=== PATIENT | female | born 1965 | race Hispanic/Latino ===

== ENCOUNTER 2019-01-19 15:46 | Emergency (ER) | payer OTHER ==
[~2019-01-19] VITALS: Ht 172.7 cm; Wt 95.5 kg
[2019-01-19] MEDS ORDERED: IBUP-1022 PO (15:53)
[2019-01-19] MEDS ORDERED: NS 1,000 ML IV ONE (16:45)
[2019-01-19 16:54] LABS: BASO % 0.3 % (0.0-1.0); EOS # 0.3 10^3/uL (0.0-0.50); EOS % 3.8 % (0.0-3.0); HEMATOCRIT 38.1 % (36.0-47.0); HEMOGLOBIN 11.6 g/dl (12.0-15.5); LYMPH # 1.6 10^3/uL (1.5-4.5); LYMPH % 21.4 % (24.0-44.0); MEAN CORPUSCULAR HGB CONC 30.4 g/dl (32.0-36.5); MEAN CORPUSCULAR VOLUME 75.4 fl (80.0-96.0); MONO # 0.6 10^3/uL (0.0-0.8); MONO % 8.1 % (0.0-5.0); NEUTROPHILS # 4.9 10^3/uL (1.8-7.7); NEUTROPHILS % 66.1 % (36.0-66.0); PLATELET COUNT, AUTOMATED 354 10^3/uL (150-450); RED BLOOD COUNT 5.05 10^6/uL (4.00-5.40); WHITE BLOOD COUNT 7.4 10^3/uL (4.0-10.0)
[2019-01-19 17:08] LABS: INR 1.02; PROTHROMBIN TIME 13.1 SECONDS (11.8-14.0)
[2019-01-19 17:10] LABS: BLOOD UREA NITROGEN 15 MG/DL (7-18); CALCIUM LEVEL 8.9 MG/DL (8.5-10.1); CARBON DIOXIDE LEVEL 33 MEQ/L (21-32); CHLORIDE LEVEL 103 MEQ/L (98-107); CK-MB VALUE MASS < 1.0 NG/ML (<3.6); CPK CREATINE PHOSPHOKINASE 87 U/L (26-192); CREATININE FOR GFR 0.92 MG/DL (0.55-1.30); FREE T4 0.86 NG/DL (0.76-1.46); GLOMERULAR FILTRATION RATE > 60.0 (>51); GLUCOSE, FASTING 74 MG/DL (70-100); MAGNESIUM LEVEL 1.8 MG/DL (1.8-2.4); MB/CK RELATIVE INDEX 1.15 (< OR =4); POTASSIUM SERUM 3.9 MEQ/L (3.5-5.1); SODIUM LEVEL 139 MEQ/L (136-145); TROPONIN I < 0.02 NG/ML (< 0.10); VITAMIN B12 LEVEL 528 PG/ML (247-911)
[2019-01-19 17:47] LABS: AMPHETAMINES LEVEL URINE NEGATIVE (NEGATIVE); BARBITURATES URINE NEGATIVE (NEGATIVE); BENZODIAZEPINES URINE NEGATIVE (NEGATIVE); CANNABINOIDS URINE NEGATIVE (NEGATIVE); COCAINE METABOLITE URINE NEGATIVE (NEGATIVE); METHADONE URINE NEGATIVE (NEGATIVE); OPIATES URINE NEGATIVE (NEGATIVE); PHENCYCLIDINE URINE NEGATIVE (NEGATIVE)
--- NOTE | 2019-01-19 17:59 | REPVR ---
EXAM: US Duplex Bilateral Lower Extremity Veins EXAM DATE/TIME: 01/19/2019 5:35 PM CLINICAL HISTORY: 53 years old, female; Pain; Leg, lower; Bilateral; Additional info: Pain bilateral le TECHNIQUE: Imaging protocol: Real-time duplex ultrasound of the Bilateral Lower Extremities with 2-D ang scale, color Doppler flow and spectral waveform analysis with image documentation. Complete exam focused on the bilateral lower extremity veins. COMPARISON: No relevant prior studies available. FINDINGS: Right deep veins: Unremarkable. The common femoral, femoral and popliteal veins are patent without thrombus. Normal Doppler waveforms. Normal compressibility and/or augmentation response. Right superficial veins: Saphenofemoral junction is patent without thrombus. Left deep veins: Unremarkable. The common femoral, femoral and popliteal veins are patent without thrombus. Normal Doppler waveforms. Normal compressibility and/or augmentation response. Left superficial veins: Saphenofemoral junction is patent without thrombus. Soft tissues: Unremarkable. IMPRESSION: No sonographic evidence of deep vein thrombosis. Electronically signed by: Won Casey On 01/19/2019 17:58:46 PM
[2019-01-19 19:45] VITALS: BP 160/98
--- NOTE | 2019-01-19 20:51 | ECGEPIP ---
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
== END 2019-01-19 19:47 | disposition home or self-care (01) ==
LOC: M ED 15:46
DX: R42 Dizziness and giddiness (principal); I95.1 Orthostatic hypotension; I51.7 Cardiomegaly; Z88.8 Allergy status to other drugs, medicaments and biological substances

== ENCOUNTER → 2019-01-24 | Outpatient (REF) | payer OTHER, MEDICAID ==
[~2019-01-24] MED LIST: IBUP-1022 PO
[2019-01-24 16:12] LABS: CHOLESTEROL RISK RATIO 3.29 (<5)
[2019-01-24 16:19] LABS: TOTAL 25(OH) VITAMIN D 18.7 NG/ML (30.0-100.0)
== END ==
LOC: M LAB REF 15:34
PROVIDERS: ATTEND Nurse Practitioner Adult Health
DX: Z13.9 Encounter for screening, unspecified (principal)

== ENCOUNTER → 2019-01-27 | Outpatient (CLI) | payer OTHER ==
--- NOTE | 2019-01-27 12:24 | REP ---
Right knee five views: There are no comparisons. There is tricompartment osteoarthritis, most advanced in the medial compartment. Subcortical cysts and cortical eburnation and cortical irregularity, particularly in the medial compartment, indicate advanced osteoarthritis. Impression: Advanced tricompartment osteoarthritis. Left knee five views: There is tricompartment osteoarthritis. Subcortical cysts, cortical irregularity and eburnation indicate advanced osteoarthritis, particularly in the medial compartment. Impression: Advanced tricompartment osteoarthritis. Electronically Signed by Sergio Calderon MD 01/27/2019 12:15 P
== END ==
LOC: M RAD 11:37
PROVIDERS: ATTEND Nurse Practitioner Adult Health
DX: M25.561 Pain in right knee (principal); M25.562 Pain in left knee

== ENCOUNTER → 2019-03-22 | Outpatient (CLI) | payer OTHER ==
--- NOTE | 2019-04-02 01:32 | ECWPNPC ---
PATIENT NAME: TORO JOHNSTON : 1965 GENDER: FEMALE VISIT DATE: 03/22/2019 DISCHARGE DATE: 03/22/19 1711 VISIT LOCKED DATE TIME: PHYSICIAN: RICO ELIAS MD RESOURCE: RICO ELIAS MD REASON FOR APPOINTMENT 1. BILAT KNEE PAIN HISTORY OF PRESENT ILLNESS PAIN SCREENING: PATIENT HAS A COMPLAINT OF ACUTE OR CHRONIC PAIN :YES 54 YEAR OLD FEMALE PATIENT WITH A HISTORY OF CHRONIC BILATERAL KNEE PAIN. THE PATIENT DESCRIBES THE PAIN ACHING, BURNING, SORE, AND DAILY WITH A PAIN SCORE OF 7-10/10 DEPENDING ON PHYSICAL ACTIVITY. THE PATIENT STATES HER PAIN BEGAN IN 2004 AFTER WALKING DOWN A FLIGHT OF STAIRS AND PROGRESSIVELY BECAME WORSE IN 2012. THE PATIENT SAYS SHE HAD A KNEE SURGERY IN 2012, BUT THE PAIN STILL PERSISTS. THE PATIENT SAYS THE PAIN IS MAKING IT DIFFICULT TO PERFORM HER DAILY ACTIVITIES SUCH WALKING, CLEANING HER HOUSE, AND GROCERY SHOPPING. PATIENT DENIES UNEXPLAINABLE WEIGHT LOSS, FEVER, CHILLS, NEW CHANGES ON HER URINARY OR BOWEL CONTROL. FALL RISK SCREENING: SCREENING :NO FALLS REPORTED IN THE LAST YEAR CURRENT MEDICATIONS TAKING MELOXICAM 7.5 MG TABLET 1 TABLET ORALLY TWICE DAILY NEEDED TAKING GABAPENTIN 300 MG CAPSULE 1 CAPSULE ORALLY TID TAKING BUPROPION HCL 75 MG TABLET 2 TABLETS ORALLY TWICE A DAY DISCONTINUED VITAMIN D (ERGOCALCIFEROL) 2000 UNIT CAPSULE 1 CAPSULE ORALLY DAILY MEDICATION LIST REVIEWED AND RECONCILED WITH THE PATIENT PAST MEDICAL HISTORY ARTHRITIS BILATERAL KNEES ALLERGIES PREDNISONE: THROAT SWELLING, HARD TO BREATHE - ALLERGY STEROIDS: THROAT SWELLING, HARD TO BREATHE SURGICAL HISTORY KNEE ARTHROSCOPY-RIGHT KNEE SCRAPE 2012 FAMILY HISTORY FATHER: UNKNOWN MOTHER: , DIAGNOSED WITH DIABETES MATERNAL GRAND FATHER: OTHER MALIGNANT NEOPLASM OF UNSPECIFIED SITE SOCIAL HISTORY GENERAL: TOBACCO USE ARE YOU A:NONSMOKER HOUSING: OWNS HOME. EDUCATION LEVEL OF EDUCATION:HIGH SCHOOL LANGUAGE LANGUAGES SPOKEN:TURKISH RECREATIONAL DRUG USE DRUG USE?NO LEARNING BARRIERS / SPECIAL NEEDS BARRIERS TO LEARNING?NO HEARING IMPAIRED?NO VISION IMPAIRED?YES :CORRECTIVE LENSES COGNITIVELY IMPAIRED?NO READINESS TO LEARN?YES LATEX QUESTIONNAIRE LATEX ALLERGY : HAVE YOU EVER DEVELOPED ANY TYPE OF REACTION AFTER HANDLING LATEX PRODUCTS SUCH RUBBER GLOVES, CONDOMS, DIAPHRAGMS, BALLOONS, SOCKS, OR UNDERWEAR?NO LATEX ALLERGY : HAVE YOU EVER DEVELOPED ANY TYPE OF REACTION DURING OR AFTER DENTAL APPOINTMENT, VAGINAL/RECTAL EXAMINATION, SURGICAL PROCEDURE, OR ANY OTHER EXPOSURE?NO LATEX RISK : HAVE YOU EVER HAD ANY DIFFICULTY BREATHING OR HIVES AFTER EATING OR HANDLING ANY FRUITS, OR VEGETABLES; SUCH KIWI, BANANAS, STONE FRUITS, OR CHESTNUTSNO LATEX RISK : DO YOU HAVE A PREVIOUS PERSONAL HISTORY OF MORE THAN NINE SURGERIES, SPINA BIFIDA, OR REPEATED CATHERIZATIONS? NO LATEX RISK : ARE YOU FREQUENTLY EXPOSED TO LATEX PRODUCTS IN YOUR OCCUPATION?NO DATE ASKED : 03/22/2019 CAFFEINE CAFFEINE USE?YES 1-2 CANS SODA EVERY OTHER DAY ADVANCE DIRECTIVE ADVANCE DIRECTIVE DISCUSSED WITH PATIENT:YES PT DOES NOT HAVE HCP AND DECLINES INFORMATION AND ASSISTANCE WITH FORM 03/22/19 PENTECOSTAL [id number] OTHER PT STATES SHE IS SPIRITUAL WITH NO CONFUCIANISM BELIEFS THAT WOULD IMPACT HEALTH CARE. MARITAL STATUS: . ALCOHOL SCREENING DID YOU HAVE A DRINK CONTAINING ALCOHOL IN THE PAST YEAR?YES HOW OFTEN DID YOU HAVE A DRINK CONTAINING ALCOHOL IN THE PAST YEAR?TWO TO FOUR TIMES A MONTH (2 POINTS) HOW MANY DRINKS DID YOU HAVE ON A TYPICAL DAY WHEN YOU WERE DRINKING IN THE PAST YEAR?1 OR 2 (0 POINTS) HOW OFTEN DID YOU HAVE SIX OR MORE DRINKS ON ONE OCCASION IN THE PAST YEAR?NEVER (0 POINTS) POINTS2 INTERPRETATIONNEGATIVE OCCUPATION: UNEMPLOYED. 03/22/19 REVIEWED WITH PT 1540 BV. HOSPITALIZATION/MAJOR DIAGNOSTIC PROCEDURE CYST REMOVED FROM BREAST AT AGE 11 AGE 11 REVIEW OF SYSTEMS REVIEWED BY: PROVIDER: RICO ELIAS MD . CONSTITUTIONAL: ANY CHANGE IN YOUR MEDICAL CONDITION? NO . CHILLS NO . FEVER NO . INFECTION: DO YOU HAVE NEW INFECTIONS? NO . DO YOU HAVE HISTORY OF MRSA? NO . MUSCULOSKELETAL: ANY NEW PATTERNS OF PAIN OR NUMBNESS? YES, INCREASING INTENSITY OF PAIN . SYTEMIC LUPUS NO . GASTROENTEROLOGY: ANY NEW CHANGE IN BOWEL CONTROL? NO . BARRETTS ESOPHAGUS NO . CIRRHOSIS NO . HEPATITIS NO . LIVER FAILURE NO . ACID REFLUX NO . UNEXPLAINED WEIGHT LOSS NO . GENITOURINARY: ANY NEW CHANGE IN BLADDER CONTROL? NO . IS THERE A CHANCE YOU COULD BE ? NO . HEMATOLOGY/LYMPH: DO YOU TAKE ANY BLOOD THINNERS? (FOR EXAMPLE- COUMADIN, PLAVIX, AGGRENOX, PLATEL, PRADAXA, OR XARELTO) NO . WHEN WAS YOUR LAST DOSE? DATE: TIME: . LOW PLATELET COUNT NO . SICKLE CELL DISEASE NO . VON WILLIEBRANDS NO . FACTOR V LEIDEN NO . THALLASEMIA NO . ANEMIA NO . EASY BRUISING NO . NEUROLOGY: HAVE YOU FALLEN IN THE PAST 12 MONTHS? NO . ANY NEW EXTREMITY NUMBNESS OR WEAKNESS? NO . HEAD INJURY NO . DEMENTIA NO . CEREBRAL PALSY NO . MULTIPLE SCLEROSIS NO . DIZZINESS NO . HEADACHE NO . STROKES NO . VERTIGO NO . CARDIOLOGY: DO YOU HAVE A PACEMAKER OR DEFIBRILLATOR? NO . ANGINA NO . HEART ATTACK NO . HEART SURGERY NO . CONGESTIVE HEART FAILURE/FLUID OVERLOAD NO . CHEST PAIN NO . HIGH BLOOD PRESSURE NO . IRREGULAR HEART BEAT NO . RESPIRATORY: HAVE YOU BEEN SICK IN THE PAST WEEK? NO . FEVER NO . FLU LIKE SYMPTOMS? NO . CPAP NO . BYPAP NO . ASTHMA NO . EMPHYSEMA NO . CHRONIC LUNG DISEASES NO . SHORTNESS OF BREATH ON EXERTION NO . COUGH NO . SNORING NO . INTEGUMENTARY: DO YOU HAVE ANY RASHES OR OPEN SORES? NO . ALLERGIC/IMMUNO: ARE YOU ALLERGIC TO IV DYE? NO . ANY NEW ALLERGIES? NO . PSYCHIATRIC: DO YOU HAVE THOUGHTS OF HURTING YOURSELF OR SOMEONE ELSE? NO . ARE YOU ABUSED, NEGLECTED, OR IN AN UNSAFE ENVIRONMENT? NO . ENDOCRINOLOGY: ARE YOU DIABETIC? NO . THYROID DISORDER NO . OTHER: DO YOU NEED ANY PRESCRIPTIONS? NO . IF YES, PLEASE LIST: ____ . ANY NEW PROBLEMS WITH YOUR MEDICATIONS? NO . WHEN DID YOU LAST EAT? ____ . WHEN DID YOU LAST DRINK? ____ . WHAT DID YOU LAST DRINK? ____ . NAME OF PERSON DRIVING YOU HOME? ____ . DO YOU HAVE ANY OTHER QUESTIONS OR CONCERNS PT HAS HAD SEVERE MUSCLE CRAMPS IN BILATERAL LEGS AT NIGHT SINCE SHE WAS A CHILD. STATES SHE HAS TAKEN FLEXERIL IN THE PAST WITH NO RELIEF . VITAL SIGNS WT 262.8 LBS, HT 57 IN, BMI 56.86 INDEX, BP 188/91 MM HG, HR 84 /MIN, RR 18 /MIN, TEMP 97.6 F, OXYGEN SAT % 100%, NA INITIALS AW 1532, REVIEWED BY: BV. EXAMINATION GENERAL EXAMINATION: PATIENT IS ALERT O X 3 AND COOPERATIVE. LUNGS CLEAR, TO AUSCULTATION. HEART: NO MURMURS OR GALLOPS; FACIAL CRANIAL NERVES ARE GROSSLY NORMAL. GOOD SYMMETRY OF FACIAL MUSCLE MOVEMENT. NORMAL VISUAL LIZ. ANTALGIC WALK. PATIENT IS LIMPING FROM THE RIGHT LEG. TENDERNESS IN THE MEDIAL ASPECT OF BOTH KNEES, ESPECIALLY THE RIGHT KNEE. SWELLING IN BOTH KNEES. NO CREPITUS OF THE KNEES, BUT PAIN IS PRESENT WITH MOVEMENT. X-RAY OF KNEES DONE ON 02/08/2019 AND 01/27/2019 SHOWS SEVERE ARTHRITIS. ASSESSMENTS ARTHRITIS OF KNEE, LEFT - M17.12 (PRIMARY) ARTHRITIS OF KNEE, RIGHT - M17.11 PAIN IN RIGHT KNEE - M25.561 PAIN IN LEFT KNEE - M25.562 OTHER CHRONIC PAIN - G89.29 TREATMENT ARTHRITIS OF KNEE, LEFT CLINICAL NOTES: WE DISCUSSED SEVERAL ISSUES WITH MS. JOHNSTON'S PAIN MANAGEMENT CASE. DUE TO THE KNEE PAIN, I WOULD LIKE TO DO KNEE INJECTIONS TO HELP WITH HER PAIN, HOWEVER THE PATIENT IS ALLERGIC TO STEROIDS. THEREFORE, I WOULD LIKE TO TRY HYLAN OR HYALURONAN AN ALTERNATIVE TO STEROIDS. BEFORE I PERFORM ANY INJECTIONS, I WOULD LIKE TO DISCUSS THE PATIENT'S CASE AND RECEIVE AN OPINION FROM THE PATIENT'S ORTHOPEDIC SURGEON, DR. JACKIE VALLEJO. I DISCUSSED WITH THE PATIENT THAT SHE MAY BE A CANDIDATE FOR COOL RADIOFREQUENCY IN THE FUTURE. I WILL ALSO DISCUSS THIS PROCEDURE WITH DR. VALLEJO TO GET HIS OPINION. THE MAIN CONCERN IS THE PAIN AND SWELLING NEAR THE MEDIAL, PERIPHERAL ASPECT OF BOTH KNEES. I AM REFERRING THE PATIENT TO [facility] TO CONSIDER MEDICATION MANAGEMENT FOR HER CHRONIC BILATERAL KNEE PAIN. I AM STARTING THE PATIENT ON CELECOXIB 200 MG 1 CAPSULE DAILY WITH FOOD TO HELP WITH HER KNEE PAIN. THE PATIENT IS USING MELOXICAM THAT IS NOT WORKING FOR HER AND HAS TRIED IBUPROFEN, DICLOFENAC, PATCHES, AND TOPICAL PRODUCTS IN THE PAST THAT DID NOT OFFER ANY PAIN RELIEF FOR HER. THE PATIENT WILL FOLLOW UP WITH THE NURSE PRACTITIONER IN 6 WEEKS. INSTRUCTIONS WERE GIVEN, QUESTIONS WERE ANSWERED, PATIENT REPORTS UNDERSTANDING AND AGREES WITH THE PLAN. I, CRISTELA SALGADO, DOCUMENTED THE ABOVE INFORMATION ACTING A SCRIBE FOR DR. ELIAS. I HAVE REVIEWED THE ABOVE DOCUMENT, WRITTEN BY CRISTELA OSPINA AND I VERIFY THAT IT IS ACCURATE. DEAR BOO NEGRETE NP: THANK YOU FOR YOUR KIND REFERRAL OF TORO JOHNSTON. IF YOU WANT TO DISCUSS HER CASE WITH ME PLEASE CALL ME AT THE PAIN CENTER AT [phone]. SINCERELY, RICO ELIAS MD PAIN MEDICINE . 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 IT IS NOT A COPY OF THE [employer] PROGRESS NOTE. MTDD
== END ==
LOC: M PAIN 15:30
PROVIDERS: ATTEND Anesthesiology
DX: M17.0 Bilateral primary osteoarthritis of knee (principal); M25.561 Pain in right knee; M25.562 Pain in left knee; G89.29 Other chronic pain; Z88.8 Allergy status to other drugs, medicaments and biological substances; E66.01 Morbid (severe) obesity due to excess calories; Z68.43 Body mass index [BMI] 50.0-59.9, adult; Z79.899 Other long term (current) drug therapy

== ENCOUNTER → 2019-05-17 | Outpatient (CLI) | payer OTHER ==
--- NOTE | 2019-05-17 16:41 | REP ---
Left forearm: Two views. History: Pain in the left arm. Findings: AP and lateral views left forearm demonstrate normal bones, joints, and soft tissues. No fracture or subluxation is seen. Impression: Negative left forearm radiographs. Electronically Signed by Mani Pichardo MD 05/17/2019 04:33 P
--- NOTE | 2019-05-17 20:02 | REP ---
Left hand series: Four views. History: Pain. Findings: Four views of the left hand demonstrate overall normal mineralization. There is minimal spurring at the IP joint of the thumb and the DIP joints of the long, ring, and small fingers. There is mild spurring at the first carpometacarpal articulation. No acute erosive changes seen. Impression: Mild osteoarthritic changes. Electronically Signed by Mani Pichardo MD 05/18/2019 09:47 A
== END ==
LOC: M RAD 15:36
PROVIDERS: ATTEND Nurse Practitioner Adult Health
DX: M25.532 Pain in left wrist (principal)

== ENCOUNTER → 2019-05-23 | Outpatient (CLI) | payer OTHER ==
--- NOTE | 2019-05-23 12:39 | REPMRS ---
Patient History The patient states she has not had a clinical breast exam in over a year. Family history of pancreatic cancer in maternal grandmother. Priors are no longer available Digital Mammo Screening Bilat: May 23, 2019 - Exam #: [id number] Bilateral CC and MLO view(s) were taken. Technologist: Christin Do, Technologist No prior studies available for comparison. FINDINGS: There are scattered fibroglandular densities. There is no evidence of dominant mass, architectural distortion, or grouped microcalcification typical of malignancy. 3-D tomosynthesis shows no additional findings. Assessment: BI-RADS/ACR category 1 mammogram. Negative Mammogram. Recommendation Routine screening mammogram of both breasts in 1 year (for women over age 40). This patient's Lifetime Breast Cancer RIsk is estimated at 12.0 %. This mammogram was interpreted with the aid of an FDA-approved computer-aided dectection system. Electronically Signed By: Alexis Pichardo MD 05/23/19 8225
== END ==
LOC: M RAD 11:01
PROVIDERS: ATTEND Nurse Practitioner Family
DX: Z12.31 Encounter for screening mammogram for malignant neoplasm of breast (principal)

== ENCOUNTER 2019-08-02 12:52 | Emergency (ER) | payer OTHER ==
[~2019-08-02] VITALS: Ht 170.2 cm; Wt 120.9 kg
[2019-08-02] MEDS ORDERED: CYCLOBENZAPRINE 10 MG TAB PO ONE (15:15)
[2019-08-02] MEDS ORDERED: LIDOCAINE 5% (LIDODERM) PATCH TD ONE (15:15)
[2019-08-02] MEDS ORDERED: CYCL10TA PO (15:57)
[2019-08-02] MEDS ORDERED: LIDO5DIS41 TOP (15:57)
[2019-08-02 16:00] VITALS: BP 148/72
[2019-08-02] MEDS ORDERED: **NOTE PATIENT COMMENT** MISC XX SCH (21:00)
== END 2019-08-02 16:16 | disposition home or self-care (01) ==
LOC: M ED 12:52
DX: M54.5 Low back pain (principal); G89.29 Other chronic pain; M25.561 Pain in right knee; M19.90 Unspecified osteoarthritis, unspecified site; Z79.899 Other long term (current) drug therapy; Z79.891 Long term (current) use of opiate analgesic; Z88.8 Allergy status to other drugs, medicaments and biological substances

== ENCOUNTER → 2020-03-16 | Outpatient (CLI) | payer OTHER ==
[~2020-03-16] MED LIST changes: +CYCL-707 PO; +LIDO5DIS41 TOP
--- NOTE | 2020-03-30 08:14 | REP ---
DIGITAL DIAGNOSTIC RIGHT BREAST MAMMOGRAPHY WITH CAD, 3D-TOMOGRAPHY, AND TARGETED RIGHT BREAST ULTRASOUND HISTORY: Palpable lump right breast x2-3 weeks. Tenderness. COMPARISON: Mammography from 05/23/2019. MAMMOGRAPHIC FINDINGS: A skin marker is affixed to the skin at the site of the palpable lump. This projects inferiorly and slightly laterally at approximately the 7 o'clock position. Breast parenchymal is predominantly fat replaced. There are scattered fibroglandular elements and the Volpara breast parenchymal density pattern is B. There is a normal benign inframammary lymph node laterally. At the site of the palpable lump, there is no soft tissue density, architectural distortion, or microcalcification. No worrisome skin change is seen. No mammographic abnormality. SONOGRAPHIC FINDINGS: The palpable painful lump is scanned in the 6-7 o'clock position. Slightly heterogeneous background echotexture is seen. No cyst is seen. No mass is observed. No acoustic shadowing is seen. IMPRESSION: BI-RADS Category 2 benign findings. Clinical follow-up is advised. Annual screening mammography can resume. This mammogram was read with the aid of an FDA approved computer-aided detection device. The patient states that her last clinical breast exam was in 02/2020. Patients Tyrer-Cuzick lifetime breast cancer risk score is 11.7%. Patient letter: Annette PAZ
== END ==
LOC: M WHC 10:12
PROVIDERS: ATTEND Nurse Practitioner Family
DX: N63.10 Unspecified lump in the right breast, unspecified quadrant (principal)
CPT/HCPCS: 76642; 77065; G0279

== ENCOUNTER → 2020-05-15 | Outpatient (REF) | payer OTHER, MEDICAID ==
[2020-05-15 13:53] LABS: RHEUMATOID FACTOR QUANT < 10.0 IU/ML (<15.0); URIC ACID 4.4 MG/DL (2.6-6.0)
[2020-05-18 17:08] LABS: ANTI DS-DNA AB Negative (Negative); ANTINUCLEAR ANTIBODIES DIRECT Negative (Negative)
== END ==
LOC: M LAB REF 12:43
PROVIDERS: ATTEND Nurse Practitioner Family
DX: M79.601 Pain in right arm (principal); M25.511 Pain in right shoulder; M25.561 Pain in right knee; M79.602 Pain in left arm; M17.0 Bilateral primary osteoarthritis of knee; E66.09 Other obesity due to excess calories

== ENCOUNTER 2020-06-13 16:42 | Emergency (ER) | payer OTHER, MEDICAID ==
[~2020-06-13] VITALS: Ht 170.2 cm; Wt 113.6 kg
[2020-06-13] MEDS ORDERED: LIDOCAINE 4% CREAM 5GM (LMX4) TOP ONE (17:45)
--- NOTE | 2020-06-13 18:44 | REPVR ---
PROCEDURE INFORMATION: Exam: US Duplex Lower Extremity Veins, Bilateral Exam date and time: 06/13/2020 6:29 PM Age: 55 years old Clinical indication: Pain; Other: Knees; Additional info: Pain behind knees, swelling TECHNIQUE: Imaging protocol: Real-time duplex ultrasound of the extremities with 2-D ang scale, color Doppler flow and spectral waveform analysis with image documentation. Complete exam focused on the bilateral lower extremity veins. COMPARISON: US Duplex, Ext LOWER veins, bilat 01/19/2019 5:27 PM FINDINGS: Right deep veins: Unremarkable. The common femoral, femoral, proximal profunda femoral and popliteal veins are patent without thrombus. Normal Doppler waveforms. Normal compressibility and/or augmentation response. Right superficial veins: Saphenofemoral junction is patent without thrombus. Left deep veins: Unremarkable. The common femoral, femoral, proximal profunda femoral and popliteal veins are patent without thrombus. Normal Doppler waveforms. Normal compressibility and/or augmentation response. Left superficial veins: Saphenofemoral junction is patent without thrombus. Soft tissues: 2.6 cm x 1.4 cm complex cyst left popliteal fossa consistent with a complex Steve's cyst. IMPRESSION: No evidence of deep vein thrombosis. 2.6 cm complex Steve's cyst on the left. Electronically signed by: David Rubalcava On 06/13/2020 18:44:20 PM
[2020-06-13] MEDS ORDERED: ANEC4CRE3 TOP (19:34)
[2020-06-13] MEDS ORDERED: VOLT1GEL15 TOP (19:34)
[2020-06-13] MEDS ORDERED: FUTU-110 XX (19:35)
[2020-06-13 19:59] VITALS: BP 154/64
== END 2020-06-13 20:00 | disposition home or self-care (01) ==
LOC: M ED 16:42
DX: M71.22 Synovial cyst of popliteal space [Baker], left knee (principal); M25.561 Pain in right knee; I10 Essential (primary) hypertension; Z88.8 Allergy status to other drugs, medicaments and biological substances

== ENCOUNTER 2021-12-17 17:24 | Emergency (ER) | payer OTHER ==
[~2021-12-17] VITALS: Ht 170.2 cm; Wt 105.7 kg
[~2021-12-17 17:24] MED LIST changes: +ANEC4CRE3 TOP; +FUTU-110 XX; +VOLT1GEL15 TOP
[2021-12-17] MEDS ORDERED: LORA-674 (17:39)
[2021-12-17] MEDS ORDERED: FURO20TA2 (17:39)
[2021-12-17] MEDS ORDERED: OXYC-1 (17:39)
[2021-12-17] MEDS ORDERED: FERR325T3 (17:39)
[2021-12-17 22:09] VITALS: BP 192/92
== END 2021-12-17 22:18 | disposition home or self-care (01) ==
LOC: M ED 17:24
DX: D25.9 Leiomyoma of uterus, unspecified (principal); I10 Essential (primary) hypertension; Z88.8 Allergy status to other drugs, medicaments and biological substances; Z79.899 Other long term (current) drug therapy

== ENCOUNTER → 2022-02-20 | Outpatient (CLI) | payer OTHER ==
[~2022-02-20] MED LIST changes: +FERR325T3; +FURO20TA2; +LORA-674; +OXYC-1
== END ==
LOC: M WHC 15:21
PROVIDERS: ATTEND Nurse Practitioner Family
DX: Z12.31 Encounter for screening mammogram for malignant neoplasm of breast (principal)

== ENCOUNTER → 2022-07-14 | Outpatient (REF) | payer OTHER ==
[2022-07-14 17:06] LABS: BASO % 0.4 % (0.0-1.0); EOS # 0.4 10^3/uL (0.0-0.5); EOS % 4.3 % (0.0-3.0); HEMATOCRIT 37.8 % (36.0-47.0); HEMOGLOBIN 11.3 g/dl (12.0-15.5); LYMPH # 1.6 10^3/uL (1.5-5.0); LYMPH % 18.3 % (24.0-44.0); MEAN CORPUSCULAR HEMOGLOBIN 22.9 pg (27.0-33.0); MEAN CORPUSCULAR HGB CONC 29.9 g/dl (32.0-36.5); MEAN CORPUSCULAR VOLUME 76.7 fl (80.0-96.0); MONO # 0.8 10^3/uL (0.0-0.8); MONO % 8.9 % (2.0-8.0); NEUTROPHILS # 6.1 10^3/uL (1.5-8.5); NEUTROPHILS % 67.9 % (36.0-66.0); PLATELET COUNT, AUTOMATED 314 10^3/uL (150-450); RED BLOOD COUNT 4.93 10^6/uL (4.00-5.40); WHITE BLOOD COUNT 8.9 10^3/uL (4.0-10.0)
[2022-07-14 17:38] LABS: FERRITIN 81.5 NG/ML (7.3-270.7); THYROID STIMULATING HORMONE 2.386 uIU/ML (0.55-4.78)
[2022-07-14 17:39] LABS: ALBUMIN 3.7 G/DL (3.2-5.2); BILIRUBIN,TOTAL 0.4 MG/DL (0.3-1.2); CALCIUM LEVEL 9.1 MG/DL (8.5-10.1); CHOLESTEROL RISK RATIO 3.28 (<5); CREATININE FOR GFR 1.04 MG/DL (0.55-1.30); GLOMERULAR FILTRATION RATE 58.4 (>51); HDL CHOLESTEROL 63.1 MG/DL (>40); LDL CHOLESTEROL 124.5 MG/DL (<100); PERCENT SATURATION 17.1 % (13.2-45.0); POTASSIUM SERUM 4.4 MMOL/L (3.5-5.1); TOTAL PROTEIN 7.2 G/DL (5.7-8.2)
[2022-07-14 17:42] LABS: HEMOGLOBIN A1c 5.4 % (4.0-6.0)
== END ==
LOC: M LAB REF 16:29
PROVIDERS: ATTEND Nurse Practitioner Family
DX: D64.9 Anemia, unspecified (principal); E66.3 Overweight

== ENCOUNTER → 2022-11-10 | Outpatient (REF) | payer OTHER ==
[2022-11-10 16:57] LABS: BASO % 0.3 % (0.0-1.0); EOS # 0.7 10^3/uL (0.0-0.5); EOS % 9.8 % (0.0-3.0); HEMATOCRIT 34.7 % (36.0-47.0); HEMOGLOBIN 10.7 g/dl (12.0-15.5); LYMPH # 2.1 10^3/uL (1.5-5.0); LYMPH % 30.4 % (24.0-44.0); MEAN CORPUSCULAR HEMOGLOBIN 23.4 pg (27.0-33.0); MEAN CORPUSCULAR HGB CONC 30.8 g/dl (32.0-36.5); MEAN CORPUSCULAR VOLUME 75.8 fl (80.0-96.0); MONO # 0.6 10^3/uL (0.0-0.8); MONO % 8.4 % (2.0-8.0); NEUTROPHILS # 3.4 10^3/uL (1.5-8.5); NEUTROPHILS % 50.8 % (36.0-66.0); PLATELET COUNT, AUTOMATED 308 10^3/uL (150-450); RED BLOOD COUNT 4.58 10^6/uL (4.00-5.40); WHITE BLOOD COUNT 6.8 10^3/uL (4.0-10.0)
[2022-11-10 17:22] LABS: ALBUMIN 3.3 G/DL (3.2-5.2); ALKALINE PHOSPHATASE 96 U/L (46-116); ALT/SGPT 16 U/L (7.0-40); AST/SGOT 17 U/L (<34); BILIRUBIN,TOTAL 0.2 MG/DL (0.3-1.2); BLOOD UREA NITROGEN 20 MG/DL (9-23); CALCIUM LEVEL 8.4 MG/DL (8.5-10.1); CARBON DIOXIDE LEVEL 28 MMOL/L (20-31); CHLORIDE LEVEL 108 MMOL/L (98-107); CREATININE FOR GFR 0.95 MG/DL (0.55-1.30); GLOMERULAR FILTRATION RATE > 60.0 (>51); GLUCOSE, FASTING 104 MG/DL (60-100); RHEUMATOID FACTOR QUANT 8.5 IU/ML (<14); SODIUM LEVEL 140 MMOL/L (136-145); TOTAL PROTEIN 6.5 G/DL (5.7-8.2)
[2022-11-10 17:25] LABS: ERYTHROCYTE SEDIMENTATION RATE 37 mm/hr (0-30)
== END ==
LOC: M LAB REF 16:28
PROVIDERS: ATTEND Nurse Practitioner Family
DX: M25.50 Pain in unspecified joint (principal)

== ENCOUNTER → 2023-03-06 | Outpatient (CLI) | payer OTHER ==
[~2023-03-06] MED LIST changes: +LORA-1041; -LORA-674
[2023-03-06 19:07] LABS: BASO % 0.3 % (0.0-1.0); EOS # 0.2 10^3/uL (0.0-0.5); EOS % 2.2 % (0.0-3.0); HEMATOCRIT 34.3 % (36.0-47.0); HEMOGLOBIN 10.4 g/dl (12.0-15.5); LYMPH # 2.1 10^3/uL (1.5-5.0); LYMPH % 30.9 % (24.0-44.0); MEAN CORPUSCULAR HGB CONC 30.3 g/dl (32.0-36.5); MEAN CORPUSCULAR VOLUME 75.9 fl (80.0-96.0); MONO # 0.6 10^3/uL (0.0-0.8); MONO % 8.3 % (2.0-8.0); NEUTROPHILS # 3.9 10^3/uL (1.5-8.5); NEUTROPHILS % 57.9 % (36.0-66.0); PLATELET COUNT, AUTOMATED 339 10^3/uL (150-450); RED BLOOD COUNT 4.52 10^6/uL (4.00-5.40); WHITE BLOOD COUNT 6.8 10^3/uL (4.0-10.0)
[2023-03-06 19:25] LABS: ERYTHROCYTE SEDIMENTATION RATE 34 mm/hr (0-30)
[2023-03-06 19:40] LABS: URIC ACID 5.1 MG/DL (3.1-7.8)
[2023-03-06 19:41] LABS: C REACTIVE PROTEIN QUANTITATIV 0.7 MG/DL (<1.0)
[2023-03-09 12:07] LABS: ANTINUCLEAR ANTIBODIES DIRECT Negative (Negative)
== END ==
LOC: M WUC 12:15
PROVIDERS: ATTEND Orthopaedic Surgery
DX: M25.561 Pain in right knee (principal)

== ENCOUNTER → 2023-04-14 | Outpatient (CLI) | payer OTHER | LOC: M RAD 12:30 | PROVIDERS: ATTEND Nurse Practitioner Family | DX: M54.2 Cervicalgia (principal) ==

== ENCOUNTER → 2023-06-03 | Outpatient (REF) | payer OTHER, MEDICAID ==
[2023-06-03 17:06] LABS: BASO % 0.4 % (0.0-1.0); EOS # 0.2 10^3/uL (0.0-0.5); EOS % 3.1 % (0.0-3.0); HEMATOCRIT 34.9 % (36.0-47.0); HEMOGLOBIN 10.6 g/dl (12.0-15.5); LYMPH # 2.5 10^3/uL (1.5-5.0); LYMPH % 33.6 % (24.0-44.0); MEAN CORPUSCULAR HEMOGLOBIN 23.2 pg (27.0-33.0); MEAN CORPUSCULAR HGB CONC 30.4 g/dl (32.0-36.5); MEAN CORPUSCULAR VOLUME 76.5 fl (80.0-96.0); MONO # 0.6 10^3/uL (0.0-0.8); MONO % 8.4 % (2.0-8.0); NEUTROPHILS # 4.1 10^3/uL (1.5-8.5); NEUTROPHILS % 54.1 % (36.0-66.0); PLATELET COUNT, AUTOMATED 324 10^3/uL (150-450); RED BLOOD COUNT 4.56 10^6/uL (4.00-5.40); WHITE BLOOD COUNT 7.5 10^3/uL (4.0-10.0)
[2023-06-03 17:37] LABS: ALBUMIN 3.4 G/DL (3.2-5.2); BILIRUBIN,TOTAL 0.2 MG/DL (0.3-1.2); CALCIUM LEVEL 9.1 MG/DL (8.5-10.1); CREATININE FOR GFR 1.04 MG/DL (0.55-1.30); GLOMERULAR FILTRATION RATE 58.1 (>51); MAGNESIUM LEVEL 1.4 MG/DL (1.8-2.4); POTASSIUM SERUM 3.7 MMOL/L (3.5-5.1); TOTAL PROTEIN 6.7 G/DL (5.7-8.2)
== END ==
LOC: M LAB REF 16:19
PROVIDERS: ATTEND Nurse Practitioner Family
DX: Z01.818 Encounter for other preprocedural examination (principal)

== ENCOUNTER 2023-06-20 17:45 | Observation (INO) | payer MEDICAID, OTHER ==
[~2023-06-20] VITALS: Ht 170.2 cm; Wt 105.4 kg
[~2023-06-20 17:45] MED LIST changes: -LORA-1041; +LORA-1041 PO
[2023-06-20] MEDS ORDERED: ONDANSETRON 4MG 2ML VIAL IV ONE (18:10)
[2023-06-20] MEDS: NS 1,000 ML IV SCH (18:52)
[2023-06-20 19:02] LABS: BASO % 0.1 % (0.0-1.0); EOS % 0.1 % (0.0-3.0); HEMATOCRIT 32.6 % (36.0-47.0); HEMOGLOBIN 10.2 g/dl (12.0-15.5); LYMPH # 0.8 10^3/uL (1.5-5.0); LYMPH % 7.9 % (24.0-44.0); MEAN CORPUSCULAR HEMOGLOBIN 23.4 pg (27.0-33.0); MEAN CORPUSCULAR HGB CONC 31.3 g/dl (32.0-36.5); MEAN CORPUSCULAR VOLUME 74.9 fl (80.0-96.0); MONO # 0.3 10^3/uL (0.0-0.8); MONO % 2.6 % (2.0-8.0); NEUTROPHILS # 8.4 10^3/uL (1.5-8.5); NEUTROPHILS % 88.7 % (36.0-66.0); PLATELET COUNT, AUTOMATED 337 10^3/uL (150-450); RED BLOOD COUNT 4.35 10^6/uL (4.00-5.40); WHITE BLOOD COUNT 9.5 10^3/uL (4.0-10.0)
[2023-06-20] MEDS ORDERED: levETIRAcetam INJection 1,500 MG in D5W 100 ML IV ONE (19:10)
[2023-06-20 19:13] LABS: INR 1.16; PARTIAL THROMBOPLASTIN TIME 23.6 SECONDS (24.8-34.2); PROTHROMBIN TIME 14.5 SECONDS (12.5-14.5)
[2023-06-20 19:18] LABS: ETHYL ALCOHOL (ETHANOL) 0.007 % (0.000-0.010); LIPASE 20 U/L (12-53)
[2023-06-20 19:19] LABS: CK-MB VALUE MASS < 1.0 NG/ML (<3.6)
[2023-06-20 19:20] LABS: ALBUMIN 3.9 G/DL (3.2-5.2); ALKALINE PHOSPHATASE 98 U/L (46-116); ALT/SGPT 15 U/L (7.0-40); AMYLASE 34 U/L (30-118); AST/SGOT 16 U/L (<34); BILIRUBIN,DIRECT 0.2 MG/DL (<0.4); BILIRUBIN,TOTAL 0.6 MG/DL (0.3-1.2); BLOOD UREA NITROGEN 19 MG/DL (9-23); CARBON DIOXIDE LEVEL 26 MMOL/L (20-31); CHLORIDE LEVEL 103 MMOL/L (98-107); CREATININE FOR GFR 0.89 MG/DL (0.55-1.30); GLOMERULAR FILTRATION RATE > 60.0 (>51); GLUCOSE, FASTING 147 MG/DL (60-100); POTASSIUM SERUM 4.5 MMOL/L (3.5-5.1); SODIUM LEVEL 137 MMOL/L (136-145); TOTAL PROTEIN 7.4 G/DL (5.7-8.2)
[2023-06-20 19:21] LABS: CPK CREATINE PHOSPHOKINASE 135 U/L (34-145); MB/CK RELATIVE INDEX 0.74 (< OR =4)
[2023-06-20 19:22] LABS: FREE T4 1.14 NG/DL (0.89-1.76); THYROID STIMULATING HORMONE 1.785 uIU/ML (0.55-4.78)
[2023-06-20 19:32] LABS: RSV AMPLIFICATION NEGATIVE (NEGATIVE)
[2023-06-20 20:58] LABS: CK-MB VALUE MASS < 1.0 NG/ML (<3.6)
[2023-06-20 21:00] LABS: CPK CREATINE PHOSPHOKINASE 132 U/L (34-145); MB/CK RELATIVE INDEX 0.75 (< OR =4)
[2023-06-20 23:27] LABS: AMPHETAMINES LEVEL URINE NEGATIVE (NEGATIVE); BARBITURATES URINE NEGATIVE (NEGATIVE); BENZODIAZEPINES URINE NEGATIVE (NEGATIVE); COCAINE METABOLITE URINE NEGATIVE (NEGATIVE); METHADONE URINE NEGATIVE (NEGATIVE)
[2023-06-20 23:28] LABS: CANNABINOIDS URINE NEGATIVE (NEGATIVE); OPIATES URINE NEGATIVE (NEGATIVE); PHENCYCLIDINE URINE NEGATIVE (NEGATIVE)
[2023-06-21] MEDS ORDERED: LISI20TA33 PO (01:35)
[2023-06-21] MEDS ORDERED: BUPR300T92 PO (01:36)
[2023-06-21] MEDS ORDERED: MECL-86 PO (01:36)
[2023-06-21] MEDS ORDERED: GABA800T4 PO (01:36)
[2023-06-21] MEDS ORDERED: ACE65ERTAB PO (01:36)
[2023-06-21] MEDS ORDERED: MAGN500T2 PO (01:36)
[2023-06-21] MEDS ORDERED: BUPR150T12 PO (01:38)
[2023-06-21] MEDS ORDERED: OXYC-1 PO (01:38)
[2023-06-21] MEDS ORDERED: HOME MED LIST COMPLETE! XX SCH (01:40)
[2023-06-21] MEDS ORDERED: ACETAMINOPHEN TAB 650MG DOSE (2X325MG) PO ONE (01:50)
[2023-06-21] MEDS: NS 1,000 ML IV SCH (02:12)
[2023-06-21] MEDS ORDERED: MAALOX 30 ML SUSP *UDC PO PRN (02:40)
[2023-06-21] MEDS ORDERED: MOM 30ML SUSPENSION UDC PO PRN (02:40)
[2023-06-21] MEDS: DOCUSATE SODIUM 100MG CAPSULE PO SCH ×2 (09:03→20:58)
[2023-06-21] MEDS: levETIRAcetam 250MG TABLET (KEPPRA) PO SCH ×2 (09:03→20:59)
[2023-06-21] MEDS: ENOXAPARIN 40MG/0.4ML SYRINGE (J1650 PER 10MG) SC SCH (09:04)
[2023-06-21] MEDS: oxyCODONE 5MG TAB PO SCH ×2 (11:18→20:59)
[2023-06-21] MEDS: MECLIZINE 25 MG TABLET PO SCH ×3 (11:19→20:58)
[2023-06-21] MEDS: LORATADINE 10 MG TAB PO SCH (11:19)
[2023-06-21] MEDS: GABAPENTIN 400MG CAP PO SCH ×3 (11:19→20:59)
[2023-06-21 14:40] VITALS: BP 142/67; TEMP 97; O2SAT 100
[2023-06-21] MEDS: ACETAMINOPHEN TAB 650MG DOSE (2X325MG) PO PRN (20:58)
[2023-06-21 21:13] VITALS: BP 140/77; TEMP 98.1; O2SAT 99
[2023-06-22 06:00] VITALS: BP 143/76; TEMP 97.7; O2SAT 97
[2023-06-22 06:51] LABS: HEMATOCRIT 30.3 % (36.0-47.0); HEMOGLOBIN 9.3 g/dl (12.0-15.5); MEAN CORPUSCULAR HEMOGLOBIN 23.7 pg (27.0-33.0); MEAN CORPUSCULAR HGB CONC 30.7 g/dl (32.0-36.5); MEAN CORPUSCULAR VOLUME 77.1 fl (80.0-96.0); PLATELET COUNT, AUTOMATED 310 10^3/uL (150-450); RED BLOOD COUNT 3.93 10^6/uL (4.00-5.40); WHITE BLOOD COUNT 7.4 10^3/uL (4.0-10.0)
[2023-06-22 07:09] LABS: BLOOD UREA NITROGEN 25 MG/DL (9-23); CARBON DIOXIDE LEVEL 28 MMOL/L (20-31); CHLORIDE LEVEL 107 MMOL/L (98-107); GLOMERULAR FILTRATION RATE > 60.0 (>51); GLUCOSE, FASTING 97 MG/DL (60-100); POTASSIUM SERUM 4.5 MMOL/L (3.5-5.1); SODIUM LEVEL 140 MMOL/L (136-145)
[2023-06-22 08:09] LABS: IRON (FE) 38 UG/DL (50-170); PERCENT SATURATION 15.6 % (13.2-45.0); TOTAL IRON BINDING CAPACITY 243 UG/DL (250-425)
[2023-06-22] MEDS: MECLIZINE 25 MG TABLET PO SCH ×3 (08:09→20:19)
[2023-06-22] MEDS: GABAPENTIN 400MG CAP PO SCH ×3 (08:09→20:19)
[2023-06-22] MEDS: DOCUSATE SODIUM 100MG CAPSULE PO SCH ×2 (08:09→20:19)
[2023-06-22] MEDS: ENOXAPARIN 40MG/0.4ML SYRINGE (J1650 PER 10MG) SC SCH (08:09)
[2023-06-22] MEDS: LORATADINE 10 MG TAB PO SCH (08:10)
[2023-06-22] MEDS: oxyCODONE 5MG TAB PO SCH ×2 (08:11→20:21)
[2023-06-22 08:12] LABS: FERRITIN 102.6 NG/ML (7.3-270.7)
[2023-06-22] MEDS: levETIRAcetam 250MG TABLET (KEPPRA) PO SCH (08:12)
[2023-06-22] MEDS ORDERED: CYMB1CAP4 PO (10:04)
[2023-06-22] MEDS ORDERED: ONDANSETRON 4MG 2ML VIAL IV PRN (12:35)
[2023-06-22 20:00] VITALS: BP 130/85; TEMP 97.7; O2SAT 92
[2023-06-22] MEDS: ACETAMINOPHEN TAB 650MG DOSE (2X325MG) PO PRN (20:20)
[2023-06-23 06:00] VITALS: TEMP 97.3; O2SAT 95
[2023-06-23 09:00] VITALS: BP 103/70
[2023-06-23] MEDS: DOCUSATE SODIUM 100MG CAPSULE PO SCH (09:02)
[2023-06-23] MEDS: LORATADINE 10 MG TAB PO SCH (09:02)
[2023-06-23] MEDS: MECLIZINE 25 MG TABLET PO SCH (09:02)
[2023-06-23] MEDS: GABAPENTIN 400MG CAP PO SCH (09:02)
[2023-06-23] MEDS: oxyCODONE 5MG TAB PO SCH (09:04)
[2023-06-23] MEDS: ENOXAPARIN 40MG/0.4ML SYRINGE (J1650 PER 10MG) SC SCH (09:04)
[2023-06-23] MEDS ORDERED: DULO1CAP4 PO (10:01)
== END 2023-06-23 10:30 | disposition home or self-care (01) ==
LOC: M ED 17:45 → EDBD 17:45 → M ED INP 17:46 → ENRESERV 06-21 14:03 → M MS5PR 06-21 14:40
PROVIDERS: ADMIT Internal Medicine; ATTEND General Practice
DX: R56.9 Unspecified convulsions (principal); T43.295A Adverse effect of other antidepressants, initial encounter; F32.A Depression, unspecified; H81.399 Other peripheral vertigo, unspecified ear; R11.10 Vomiting, unspecified; E66.9 Obesity, unspecified; I10 Essential (primary) hypertension; G89.4 Chronic pain syndrome; F11.20 Opioid dependence, uncomplicated; M17.0 Bilateral primary osteoarthritis of knee; R26.81 Unsteadiness on feet; Z99.89 Dependence on other enabling machines and devices; M47.812 Spondylosis without myelopathy or radiculopathy, cervical region; Z88.8 Allergy status to other drugs, medicaments and biological substances; D50.9 Iron deficiency anemia, unspecified; Z81.8 Family history of other mental and behavioral disorders; Z79.899 Other long term (current) drug therapy
CPT/HCPCS: 36415; 70450; 71045; 72125; 72170; 73564; 80047; 80048; 80076; 80307; 82077; 82150; 82550; 82553; 82728; 83550; 83605; 83690; 84439; 84443; 85025; 85027; 85610; 85730; 86850; 86900; 86901; 87631; 93005; 93041; 94760; 96361; 96365; 96372; 96375; 99285; J1650; J1953; J2405

== ENCOUNTER → 2023-11-30 | Outpatient (REF) | payer OTHER, MEDICAID ==
[~2023-11-30] MED LIST changes: +ACE65ERTAB PO; +BUPR-597 PO; +BUPR150T12 PO; +CYMB1CAP4 PO; +DULO1CAP4 PO; +GABA800T4 PO; +LISI20TA33 PO; +MAGN500T2 PO; +MECL-86 PO; +OXYC-1 PO
[2023-11-30 13:07] LABS: BASO % 0.1 % (0.0-1.0); EOS # 0.3 10^3/uL (0.0-0.5); EOS % 3.9 % (0.0-3.0); HEMATOCRIT 32.3 % (36.0-47.0); HEMOGLOBIN 9.6 g/dl (12.0-15.5); LYMPH # 1.7 10^3/uL (1.5-5.0); LYMPH % 23.4 % (24.0-44.0); MEAN CORPUSCULAR HEMOGLOBIN 22.1 pg (27.0-33.0); MEAN CORPUSCULAR HGB CONC 29.7 g/dl (32.0-36.5); MEAN CORPUSCULAR VOLUME 74.4 fl (80.0-96.0); MONO # 0.6 10^3/uL (0.0-0.8); MONO % 7.8 % (2.0-8.0); NEUTROPHILS # 4.8 10^3/uL (1.5-8.5); NEUTROPHILS % 64.5 % (36.0-66.0); PLATELET COUNT, AUTOMATED 336 10^3/uL (150-450); RED BLOOD COUNT 4.34 10^6/uL (4.00-5.40); WHITE BLOOD COUNT 7.4 10^3/uL (4.0-10.0)
[2023-11-30 13:14] LABS: ALBUMIN 3.2 G/DL (3.2-5.2); ALKALINE PHOSPHATASE 115 U/L (46-116); ALT/SGPT 14 U/L (7.0-40); AST/SGOT 15 U/L (<34); BILIRUBIN,TOTAL 0.3 MG/DL (0.3-1.2); BLOOD UREA NITROGEN 19 MG/DL (9-23); CARBON DIOXIDE LEVEL 27 MMOL/L (20-31); CHLORIDE LEVEL 107 MMOL/L (98-107); CHOLESTEROL LEVEL 169 MG/DL (<200); CHOLESTEROL RISK RATIO 3.46 (<5); CREATININE FOR GFR 0.77 MG/DL (0.55-1.30); FERRITIN 52.6 NG/ML (7.3-270.7); GLOMERULAR FILTRATION RATE > 60.0 (>51); GLUCOSE, FASTING 92 MG/DL (60-100); HDL CHOLESTEROL 48.8 MG/DL (>40); IRON (FE) 40 UG/DL (50-170); LDL CHOLESTEROL 104.4 MG/DL (<100); MAGNESIUM LEVEL 1.9 MG/DL (1.8-2.4); NON-HDL-C 120.2 MG/DL; PERCENT SATURATION 14.5 % (13.2-45.0); POTASSIUM SERUM 4.2 MMOL/L (3.5-5.1); SODIUM LEVEL 139 MMOL/L (136-145); THYROID STIMULATING HORMONE 1.263 uIU/ML (0.55-4.78); TOTAL IRON BINDING CAPACITY 276 UG/DL (250-425); TOTAL PROTEIN 6.8 G/DL (5.7-8.2); TRIGLYCERIDES LEVEL 79 MG/DL (<150)
[2023-11-30 13:15] LABS: FOLATE 11.5 NG/ML (>5.4); VITAMIN B12 LEVEL 438 PG/ML (211-911)
[2023-11-30 13:41] LABS: HEMOGLOBIN A1c 5.8 % (4.0-6.0)
== END ==
LOC: M LAB REF 12:26
PROVIDERS: ATTEND Nurse Practitioner Family
DX: E66.9 Obesity, unspecified (principal); D64.9 Anemia, unspecified

== ENCOUNTER → 2024-05-17 | Outpatient (REF) | payer OTHER ==
[~2024-05-17] MED LIST changes: +GABA-1635 PO; -GABA800T4 PO
[2024-05-17 16:33] LABS: BASO % 0.3 % (0.0-1.0); EOS # 0.4 10^3/uL (0.0-0.5); EOS % 4.2 % (0.0-3.0); HEMATOCRIT 35.5 % (36.0-47.0); HEMOGLOBIN 10.9 g/dl (12.0-15.5); LYMPH # 2.3 10^3/uL (1.5-5.0); LYMPH % 26.1 % (24.0-44.0); MEAN CORPUSCULAR HEMOGLOBIN 23.3 pg (27.0-33.0); MEAN CORPUSCULAR HGB CONC 30.7 g/dl (32.0-36.5); MEAN CORPUSCULAR VOLUME 75.9 fl (80.0-96.0); MONO # 0.7 10^3/uL (0.0-0.8); MONO % 8.3 % (2.0-8.0); NEUTROPHILS # 5.3 10^3/uL (1.5-8.5); NEUTROPHILS % 60.8 % (36.0-66.0); PLATELET COUNT, AUTOMATED 329 10^3/uL (150-450); RED BLOOD COUNT 4.68 10^6/uL (4.00-5.40); WHITE BLOOD COUNT 8.8 10^3/uL (4.0-10.0)
[2024-05-17 16:35] LABS: INR 0.95; PARTIAL THROMBOPLASTIN TIME 27.8 SECONDS (24.8-34.2)
[2024-05-17 16:50] LABS: ALBUMIN 3.5 G/DL (3.2-5.2); ALKALINE PHOSPHATASE 111 U/L (35-104); ALT/SGPT 18 U/L (7.0-40); AST/SGOT 18 U/L (<34); BILIRUBIN,TOTAL 0.2 MG/DL (0.3-1.2); BLOOD UREA NITROGEN 21 MG/DL (9-23); CALCIUM LEVEL 9.5 MG/DL (8.5-10.1); CARBON DIOXIDE LEVEL 28 MMOL/L (20-31); CHLORIDE LEVEL 107 MMOL/L (98-107); CREATININE FOR GFR 0.86 MG/DL (0.55-1.30); GLOMERULAR FILTRATION RATE > 60.0 (>51); GLUCOSE, FASTING 101 MG/DL (60-100); POTASSIUM SERUM 4.4 MMOL/L (3.5-5.1); SODIUM LEVEL 139 MMOL/L (136-145); TOTAL PROTEIN 7.9 G/DL (5.7-8.2)
== END ==
LOC: M LAB REF 16:16
PROVIDERS: ATTEND Nurse Practitioner Family
DX: Z01.818 Encounter for other preprocedural examination (principal)

== ENCOUNTER → 2024-09-09 | Outpatient (CLI) | payer OTHER ==
[2024-09-09 11:18] LABS: BASO % 0.1 % (0.0-1.0); EOS # 0.4 10^3/uL (0.0-0.5); EOS % 4.7 % (0.0-3.0); HEMATOCRIT 33.8 % (36.0-47.0); HEMOGLOBIN 10.4 g/dl (12.0-15.5); LYMPH # 2.1 10^3/uL (1.5-5.0); LYMPH % 25.8 % (24.0-44.0); MEAN CORPUSCULAR HEMOGLOBIN 23.1 pg (27.0-33.0); MEAN CORPUSCULAR HGB CONC 30.8 g/dl (32.0-36.5); MEAN CORPUSCULAR VOLUME 74.9 fl (80.0-96.0); MONO # 0.5 10^3/uL (0.0-0.8); MONO % 6.2 % (2.0-8.0); NEUTROPHILS % 62.8 % (36.0-66.0); PLATELET COUNT, AUTOMATED 293 10^3/uL (150-450); RED BLOOD COUNT 4.51 10^6/uL (4.00-5.40); WHITE BLOOD COUNT 7.9 10^3/uL (4.0-10.0)
[2024-09-09 11:30] LABS: INR 0.97; PARTIAL THROMBOPLASTIN TIME 27.9 SECONDS (24.8-34.2); PROTHROMBIN TIME 13.2 SECONDS (12.5-14.5)
[2024-09-09 11:46] LABS: ALBUMIN 3.1 G/DL (3.2-5.2); ALKALINE PHOSPHATASE 115 U/L (35-104); ALT/SGPT 13 U/L (7.0-40); AST/SGOT 9 U/L (<34); BILIRUBIN,TOTAL 0.3 MG/DL (0.3-1.2); BLOOD UREA NITROGEN 17 MG/DL (9-23); CALCIUM LEVEL 8.7 MG/DL (8.5-10.1); CARBON DIOXIDE LEVEL 29 MMOL/L (20-31); CHLORIDE LEVEL 106 MMOL/L (98-107); CREATININE FOR GFR 0.85 MG/DL (0.55-1.30); GLOMERULAR FILTRATION RATE > 60.0 (>51); GLUCOSE, FASTING 105 MG/DL (60-100); POTASSIUM SERUM 4.1 MMOL/L (3.5-5.1); SODIUM LEVEL 143 MMOL/L (136-145); TOTAL PROTEIN 6.7 G/DL (5.7-8.2)
== END ==
LOC: M EKG 10:19
PROVIDERS: ATTEND Nurse Practitioner Family
DX: Z01.89 Encounter for other specified special examinations (principal)

== ENCOUNTER → 2024-10-13 | Outpatient (REF) | payer OTHER ==
[2024-10-15 15:02] LABS: HPV APTIMA Not Detected (Not Detected)
== END ==
LOC: M PLALAB 13:16
PROVIDERS: ATTEND Specialist
DX: Z12.4 Encounter for screening for malignant neoplasm of cervix (principal)

== ENCOUNTER → 2024-11-02 | Outpatient (CLI) | payer OTHER ==
[~2024-11-02] MED LIST changes: -BUPR-597 PO; +BUPR-766 PO
== END ==
LOC: M RAD 09:18
PROVIDERS: ATTEND Orthopaedic Surgery
DX: M25.562 Pain in left knee (principal); M79.89 Other specified soft tissue disorders

== ENCOUNTER → 2025-01-12 | Outpatient (REF) | payer OTHER ==
[~2025-01-12] MED LIST changes: +LIDO1ADH93 TOP; -LIDO5DIS41 TOP
[2025-01-12 17:34] LABS: ALT/SGPT 14.0 U/L (7.0-40); AST/SGOT 19.0 U/L (<34); CALCIUM LEVEL 8.9 MG/DL (8.5-10.1); CARBON DIOXIDE LEVEL 29.0 MMOL/L (20-31); CHLORIDE LEVEL 102.0 MMOL/L (98-107); CREATININE FOR GFR 0.84 MG/DL (0.55-1.30); GLOMERULAR FILTRATION RATE 80.5 (>51); IRON (FE) 40.0 UG/DL (50-170); MAGNESIUM LEVEL 1.6 MG/DL (1.8-2.4); PERCENT SATURATION 14.5 % (13.2-45.0); POTASSIUM SERUM 4.2 MMOL/L (3.5-5.1); SODIUM LEVEL 140.0 MMOL/L (136-145)
[2025-01-12 17:54] LABS: BASO # 0.0 10^3/uL (0.0-0.2); BASO % 0.4 % (0.0-1.0); EOS # 0.5 10^3/uL (0.0-0.5); EOS % 5.5 % (0.0-3.0); LYMPH # 2.3 10^3/uL (1.5-5.0); LYMPH % 26.7 % (24.0-44.0); MONO # 0.7 10^3/uL (0.0-0.8); MONO % 8.2 % (2.0-8.0); NEUTROPHILS # 5.0 10^3/uL (1.5-8.5); NEUTROPHILS % 59.1 % (36.0-66.0); PLATELET COUNT, AUTOMATED 296 10^3/uL (150-450)
== END ==
LOC: M LAB REF 17:02
PROVIDERS: ATTEND Nurse Practitioner Family
DX: E66.9 Obesity, unspecified (principal); D64.9 Anemia, unspecified

== ENCOUNTER → 2025-03-29 | Outpatient (REF) | payer OTHER ==
[~2025-03-29] MED LIST changes: -ACE65ERTAB PO; +ACET-1593 PO; -IBUP-1022 PO; +IBUP600T42 PO
[2025-03-29 12:43] LABS: BASO # 0.0 10^3/uL (0.0-0.2); BASO % 0.5 % (0.0-1.0); EOS # 0.4 10^3/uL (0.0-0.5); EOS % 5.8 % (0.0-3.0); LYMPH # 1.8 10^3/uL (1.5-5.0); LYMPH % 27.8 % (24.0-44.0); MONO # 0.6 10^3/uL (0.0-0.8); MONO % 8.7 % (2.0-8.0); NEUTROPHILS # 3.8 10^3/uL (1.5-8.5); NEUTROPHILS % 56.9 % (36.0-66.0); PLATELET COUNT, AUTOMATED 315 10^3/uL (150-450)
[2025-03-29 12:59] LABS: ESTIMATED AVERAGE GLUCOSE 126.0 MG/DL (60-110)
[2025-03-29 13:17] LABS: CREATININE, URINE 68.8 MG/DL; MALB URINE SIEMENS 6.0 MG/L; MAU/CREAT RATIO 8.7 MCG/MG (0.0-30.0)
[2025-03-29 13:27] LABS: ALT/SGPT 17 U/L (7.0-40); AST/SGOT 20 U/L (<34); CALCIUM LEVEL 8.9 MG/DL (8.5-10.1); CARBON DIOXIDE LEVEL 27 MMOL/L (20-31); CHLORIDE LEVEL 105 MMOL/L (98-107); CHOLESTEROL LEVEL 170 MG/DL (<200); CHOLESTEROL RISK RATIO 3.29 (<5); CREATININE FOR GFR 0.76 MG/DL (0.55-1.30); GLOMERULAR FILTRATION RATE > 90.0 (>51); LDL CHOLESTEROL 106.0 MG/DL (<100); MAGNESIUM LEVEL 1.7 MG/DL (1.8-2.4); NON-HDL-C 118.4 MG/DL; POTASSIUM SERUM 4.6 MMOL/L (3.5-5.1); SODIUM LEVEL 141 MMOL/L (136-145); TRIGLYCERIDES LEVEL 62 MG/DL (<150)
== END ==
LOC: M LAB REF 11:40
PROVIDERS: ATTEND Nurse Practitioner Family
DX: I10 Essential (primary) hypertension (principal); E66.811 Obesity, class 1; R74.8 Abnormal levels of other serum enzymes; D50.9 Iron deficiency anemia, unspecified; E83.42 Hypomagnesemia